=== PATIENT | female | born 1995 | race Caucasian/White ===

== ENCOUNTER → 2022-08-18 | Outpatient (CLI) | payer OTHER, SELFPAY ==
[2022-08-18 13:52] LABS: Absolute Lymphocyte Count 1.31 X10^3/uL (0.83-4.51); Absolute Neutrophil Count 5.6 X10^3/uL (2.0-7.7); Basophil# 0.03 X10^3/uL; Basophil% 0.4 % (0-1); Eosinophil# 0.11 X10^3/uL; Eosinophils% 1.5 % (0-5); Hematocrit 39.3 % (37-47); Hemoglobin 13.1 g/dL (12.0-15.0); Lymphocyte # 1.31 X10^3/ul (0.83-4.51); Lymphocyte % 17.5 % (19-41); Mean Corp Hgb Conc 33.3 g/dL (32-36); Mean Corpuscular Volume 86.9 fL (81-99); Mean Platelet Vol. 9.9 fl (6.2-12.0); Monocyte# 0.43 X10^3/uL; Monocyte% 5.7 % (0-10); NRBC Flagged by Analyzer 0 % (0-5); Neutrophil # 5.58 X10^3/uL (2.7-7.7); Neutrophil % 74.6 % (47-70); Platelet Count 319 K/mm3 (150-450); RBC Distribution Width CV 13.4 % (11.6-14.6); RBC Distribution Width SD 42.5 fl (35.1-43.9); Red Blood Count 4.52 M/mm3 (4.2-5.4); White Blood Count 7.5 K/mm3 (4.4-11.0)
[2022-08-18 14:02] LABS: Anion Gap 8 (5-15); BUN 18 mg/dL (7-18); BUN/Creat Ratio 24.8 RATIO (10-20); Calcium,Total 8.8 mg/dL (8.5-10.1); Chloride 101 mmol/L (98-107); Creatinine, Serum 0.73 mg/dL (0.55-1.02); EST Glomerular Filtration Rate 104 mL/min (>60); Est Glom Filt Rate - Afr Amer 125 mL/min (>60); Glucose 263 mg/dL (74-106); Potassium 3.8 mmol/L (3.5-5.1); Sodium Level 134 mmol/L (136-145)
[2022-08-18 14:09] LABS: Hemoglobin A1c 6.2 % (3.8-5.6)
[2022-08-18 15:49] LABS: HIV - WCH Non-Reactive (Nonreactive); Hepatitis B Surface Antigen Non-Reactive (Nonreactive); Hepatitis C Antibody Non-Reactive (Nonreactive); Rubella IgG Reactive (Nonreactive); Syphilis Antibodies Non-reactive
[2022-08-20 11:34] LABS: V-Zoster IgG (Immunity) 2920 index (Immune >165)
[2022-08-20 22:06] LABS: Chlamydia By Nucleic Acid AMP Negative (Negative)
[2022-08-20 22:14] LABS: Gonococcus By Nucleic Acid AMP Negative (Negative)
== END | disposition home or self-care (01) ==
LOC: WOBLAB 12:12
PROVIDERS: Visit Provider Obstetrics & Gynecology
DX: Z34.81 Encounter for supervision of other normal pregnancy, first trimester (principal); Z11.3 Encounter for screening for infections with a predominantly sexual mode of transmission
CPT/HCPCS: 36415; 80048; 83036; 85025; 86703; 86762; 86780; 86787; 86803; 87086; 87088; 87340; 87491; 87591

== ENCOUNTER → 2022-08-23 | Outpatient (CLI) | payer OTHER, SELFPAY ==
--- NOTE | 2022-08-23 16:02 | EKG12_ITS ---
Test Reason : PREGNATE Blood Pressure : / mmHG Vent. Rate : 072 BPM Atrial Rate : 072 BPM P-R Int : 146 ms QRS Dur : 080 ms QT Int : 368 ms P-R-T Axes : 059 083 023 degrees QTc Int : 402 ms Normal sinus rhythm Normal ECG Confirmed by ESTEBAN REINA, VIRGIL ([id number]), sound editor EKTA WATKINS ([id number]) on 08/24/2022 8:45:26 AM Referred By: Travis Mercedes Confirmed By:VIRGIL ORELLANA MD
== END | disposition home or self-care (01) ==
LOC: PSN 16:01
PROVIDERS: PCP Nurse Practitioner Family; Referring Provider Obstetrics & Gynecology; Visit Provider Obstetrics & Gynecology
DX: Z34.80 Encounter for supervision of other normal pregnancy, unspecified trimester (principal)
CPT/HCPCS: 93005

== ENCOUNTER → 2022-10-07 | Outpatient (CLI) | payer OTHER, SELFPAY ==
[2022-10-07 16:35] LABS: Protein, Urine (Random) 7.2 mg/dL (<11.9); Protein:Creat Ratio 101 mg/g CRE (0-200)
[2022-10-07 16:38] LABS: Absolute Lymphocyte Count 1.87 X10^3/uL (0.83-4.51); Absolute Neutrophil Count 7.3 X10^3/uL (2.0-7.7); Basophil# 0.04 X10^3/uL; Basophil% 0.4 % (0-1); Eosinophil# 0.11 X10^3/uL; Eosinophils% 1.1 % (0-5); Hematocrit 40.9 % (37-47); Hemoglobin 13.5 g/dL (12.0-15.0); Lymphocyte # 1.87 X10^3/ul (0.83-4.51); Lymphocyte % 19.1 % (19-41); Mean Corpuscular Hgb 28.5 pg (27.0-32.0); Mean Corpuscular Volume 86.5 fL (81-99); Mean Platelet Vol. 9.8 fl (6.2-12.0); Monocyte# 0.44 X10^3/uL; Monocyte% 4.5 % (0-10); NRBC Flagged by Analyzer 0 % (0-5); Neutrophil # 7.32 X10^3/uL (2.7-7.7); Neutrophil % 74.7 % (47-70); Platelet Count 334 K/mm3 (150-450); RBC Distribution Width CV 13.5 % (11.6-14.6); Red Blood Count 4.73 M/mm3 (4.2-5.4); White Blood Count 9.8 K/mm3 (4.4-11.0)
[2022-10-07 19:05] LABS: ALB/GLOB Ratio 0.9 RATIO (0.9-2.4); AST(SGOT) 13 U/L (15-37); Alanine Aminotransfer ALT/SGPT 16 U/L (13-56); Albumin, Serum 3.5 g/dL (3.2-5.0); Alkaline Phosphatase 62 U/L (45-117); Anion Gap 5 (5-15); BUN 10 mg/dL (7-18); BUN/Creat Ratio 14.5 RATIO (10-20); Calcium,Total 9.3 mg/dL (8.5-10.1); Chloride 106 mmol/L (98-107); Creatinine, Serum 0.69 mg/dL (0.55-1.02); EST Glomerular Filtration Rate 110 mL/min (>60); Est Glom Filt Rate - Afr Amer 133 mL/min (>60); Globulin 3.8 g/dL (2.2-4.2); Glucose 42 mg/dL (74-106); LDH 207 U/L (84-246); Potassium 3.6 mmol/L (3.5-5.1); Protein, Total 7.3 g/dL (6.4-8.2); Sodium Level 137 mmol/L (136-145)
== END | disposition home or self-care (01) ==
LOC: LABSPEC 15:41
PROVIDERS: PCP Nurse Practitioner Family; Visit Provider Obstetrics & Gynecology
DX: Z34.81 Encounter for supervision of other normal pregnancy, first trimester (principal)
CPT/HCPCS: 36415; 80053; 82570; 83615; 84156; 85025; 87086; 87088

== ENCOUNTER 2023-01-27 13:22 | Outpatient (CLI) | payer OTHER, SELFPAY ==
[2023-01-27 14:52] VITALS: BMI 35.5
[2023-01-27 15:01] VITALS: BP 130/75; PULSE 90; PULSE 92; TEMP 37.2; O2SAT 96
[2023-01-27 15:16] VITALS: BP 136/76; PULSE 95
[2023-01-27 15:16] LABS: Hematocrit 36.2 % (37-47); Hemoglobin 11.6 g/dL (12.0-15.0); Mean Corpuscular Hgb 28.4 pg (27.0-32.0); Mean Corpuscular Volume 88.5 fL (81-99); Mean Platelet Vol. 9.7 fl (6.2-12.0); Platelet Count 279 K/mm3 (150-450); RBC Distribution Width CV 13.5 % (11.6-14.6); RBC Distribution Width SD 43.8 fl (35.1-43.9); Red Blood Count 4.09 M/mm3 (4.2-5.4); White Blood Count 9.9 K/mm3 (4.4-11.0)
[2023-01-27 15:31] VITALS: BP 130/74; PULSE 89
[2023-01-27 15:35] LABS: ALB/GLOB Ratio 0.7 RATIO (0.9-2.4); AST(SGOT) 26 U/L (15-37); Alanine Aminotransfer ALT/SGPT 37 U/L (13-56); Albumin, Serum 2.6 g/dL (3.2-5.0); Alkaline Phosphatase 103 U/L (45-117); Anion Gap 5 (5-15); BUN 8 mg/dL (7-18); Chloride 108 mmol/L (98-107); Creatinine, Serum 0.61 mg/dL (0.55-1.02); EST Glomerular Filtration Rate 125 mL/min (>60); Est Glom Filt Rate - Afr Amer 152 mL/min (>60); Estimated Creatinine Clearance 106.39 ml/min; Globulin 3.9 g/dL (2.2-4.2); Glucose 89 mg/dL (74-106); LDH 224 U/L (84-246); Protein, Total 6.5 g/dL (6.4-8.2); Sodium Level 137 mmol/L (136-145); Uric Acid 5.3 mg/dL (2.6-6.0)
[2023-01-27 15:46] VITALS: BP 120/70; PULSE 89
[2023-01-27 15:52] LABS: Syphilis Antibodies Non-reactive
[2023-01-27 16:10] VITALS: BP 142/79; PULSE 88
[2023-01-27 16:25] VITALS: BP 128/78; PULSE 93
--- NOTE | 2023-01-28 06:35 | OB.TRI.NOTE ---
HPI - General General Date of Service: 01/27/23 HPI Narrative TERRI MATHEWS, is a 27 F who presents with elevated blood pressures in office PFSH PFS Home Medications labetalol 300 mg tablet 300 mg PO BID 01/27/23 [History Last Taken 01/27/23 11:00] Allergy/AdvReac Type Severity Reaction Status Date / Time kiwi Allergy Anaphylaxis Verified 01/27/23 14:54 Penicillins [PCN] Allergy Hives Verified 01/27/23 14:54 Sulfa (Sulfonamide Allergy Hives Verified 01/27/23 14:54 Antibiotics) [sulfa drugs] Social History Smoking Status: Never smoker NST FHR Rate Baby A Baseline: 150 Variability:: Moderate Accelerations:: 10 x 10 Decelerations:: None NST Reactive:: Yes Uterine Activity:: Irritable Assessment & Plan (1) : PLAN: Patient sent from office with elevated blood pressures known chronic hypertensive. Overall BPs in triage within normal limits. Patient remains asymptomatic. HELLP labs within normal limits. All reassuring. To continue taking blood pressures at home given parameters. Follow-up in office okay to discharge home
== END 2023-01-27 16:45 | disposition home or self-care (01) ==
LOC: WOBLAB 13:23 → WPOUT 14:36 → WP 14:36
PROVIDERS: PCP Nurse Practitioner Family; Referring Provider Obstetrics & Gynecology; Visit Provider Obstetrics & Gynecology
DX: O09.899 Supervision of other high risk pregnancies, unspecified trimester (principal); O99.891 Other specified diseases and conditions complicating pregnancy; R73.9 Hyperglycemia, unspecified; Z3A.00 Weeks of gestation of pregnancy not specified
CPT/HCPCS: 36415; 59025; 59050; 80053; 83615; 84550; 85027; 86780

== ENCOUNTER → 2023-03-03 | Outpatient (CLI) | payer OTHER, SELFPAY | END | disposition home or self-care (01) | LOC: LABSPEC 11:01 | PROVIDERS: PCP Nurse Practitioner Family; Visit Provider Obstetrics & Gynecology | DX: N39.0 Urinary tract infection, site not specified (principal) | CPT/HCPCS: 87086 ==

== ENCOUNTER → 2023-03-11 | Outpatient (CLI) | payer OTHER, SELFPAY ==
[2023-03-11 11:11] LABS: Hematocrit 36.3 % (37-47); Hemoglobin 11.7 g/dL (12.0-15.0); Mean Corp Hgb Conc 32.2 g/dL (32-36); Mean Corpuscular Hgb 27.4 pg (27.0-32.0); Platelet Count 258 K/mm3 (150-450); RBC Distribution Width CV 13.9 % (11.6-14.6); RBC Distribution Width SD 42.6 fl (35.1-43.9); Red Blood Count 4.27 M/mm3 (4.2-5.4); White Blood Count 10.4 K/mm3 (4.4-11.0)
== END | disposition home or self-care (01) ==
LOC: WOBLAB 10:58
PROVIDERS: PCP Nurse Practitioner Family; Visit Provider Obstetrics & Gynecology
DX: Z34.83 Encounter for supervision of other normal pregnancy, third trimester (principal); Z36.85 Encounter for antenatal screening for Streptococcus B
CPT/HCPCS: 36415; 85027; 87081; 87186

== ENCOUNTER 2023-03-25 04:50 | Inpatient (IN) | payer OTHER, SELFPAY ==
[2023-03-25] VITALS (23 sets, daily range): BP systolic 121–154; BP diastolic 60–91; PULSE 73–98; RESP 14–18; TEMP 36.1–36.7; O2SAT 95–99; BMI 37.5
[2023-03-25] MEDS: Lactated Ringers 1,000 ML 999 ML IV (05:30)
[2023-03-25 05:46] LABS: Absolute Lymphocyte Count 1.74 X10^3/uL (0.83-4.51); Absolute Neutrophil Count 5.7 X10^3/uL (2.0-7.7); Basophil# 0.03 X10^3/uL; Basophil% 0.4 % (0-1); Eosinophils% 1.2 % (0-5); Hematocrit 33.7 % (37-47); Hemoglobin 10.9 g/dL (12.0-15.0); Lymphocyte # 1.74 X10^3/ul (0.83-4.51); Lymphocyte % 21.1 % (19-41); Mean Corp Hgb Conc 32.3 g/dL (32-36); Mean Corpuscular Hgb 26.8 pg (27.0-32.0); Mean Corpuscular Volume 82.8 fL (81-99); Mean Platelet Vol. 10.6 fl (6.2-12.0); Monocyte# 0.65 X10^3/uL; Monocyte% 7.9 % (0-10); NRBC Flagged by Analyzer 0 % (0-5); Neutrophil # 5.68 X10^3/uL (2.7-7.7); Platelet Count 280 K/mm3 (150-450); RBC Distribution Width CV 13.8 % (11.6-14.6); RBC Distribution Width SD 41.3 fl (35.1-43.9); Red Blood Count 4.07 M/mm3 (4.2-5.4); White Blood Count 8.2 K/mm3 (4.4-11.0)
[2023-03-25 05:58] LABS: Bedside Glucose 124 mg/dL (74-106)
[2023-03-25] MEDS: Lactated Ringers 1,000 ML 150 ML IV (06:32)
[2023-03-25] MEDS: Sodium Citrate/Citric Acid 30 ML UDC PO (06:43)
[2023-03-25] MEDS: Acetaminophen 500 MG Tablet 1000 MG PO ×4 (06:43→23:48)
--- NOTE | 2023-03-25 06:55 | PCM.HP.BLA ---
History and Physical Date of Admission: 03/25/23 Chief complaint: Primary section breech History present illness: 27-year-old G1, P0 at 37 weeks and 3 days with NAVDEEP 04/12/2023 arrives for primary section for breech. Denies headache, visual changes, chest pain, shortness of breath, nausea vomit, right upper quadrant pain. Patient states good movement. is complicated by breech, GBS positive, chronic hypertension on labetalol, diabetes mellitus with insulin pump, BMI 37 Obstetric history: G1: Current Past medical history: Chronic hypertension, diabetes mellitus Medications: NovoLog insulin pump, labetalol 800 mg twice daily Past surgical history: None Allergies: Penicillin, sulfa Social history: Denies smoking, alcohol use, drug use Family history: Denies history DVT or PE Review of systems: Besides above pertinent positives a full review of systems was performed and found to be negative Physical exam: Vitals: Blood pressure 124/75 pulse 86 SPO2 96% on room air General: Normal-appearing no acute distress HEENT: Normocephalic/atraumatic no cervical lymphadenopathy Cardiac/respiratory: No use of accessory muscles, nonlabored breathing Abdomen: Soft, nontender, gravid Extremities: No peripheral edema normal peripheral pulses Psych: Normal affect normal demeanor nonpressured speech Labs: White blood cell count 8.2 hemoglobin 10.9 hematocrit 33.7% platelets 280. Glucose 124. Blood type O+ antibody negative Assessment and plan: 27-year-old G1, P0 at 37 weeks and 3 days arrives for primary section for breech. Educated patient on risk benefits alternatives include but not limited to visceral or vascular injury, prolonged hospitalization, blood loss need for transfusion, reoperation. Patient state understanding wish to proceed. All questions were answered and consent was signed. For gentamicin and clindamycin for antibiotic preoperatively. We will continue to follow blood sugars and treat appropriately. We will continue to follow monitor blood pressures and treat appropriately
[2023-03-25] MEDS: Clindamycin 900 MG/50 ML BAG 75 MG IV ×3 (07:27→23:49)
[2023-03-25 08:12] LABS: Syphilis Antibodies Non-reactive
--- NOTE | 2023-03-25 08:14 | OP.PCM_ITS ---
Details Operative Information Date of Procedure: 03/25/23 Pre-Operative Diagnosis: Term, breech, chronic hypertension, diabetes mellitus Post-Operative Diagnosis: Term, breech, chronic hypertension, diabetes mellitus marketing support coordinator #1: Ye Leon Findings Description of Procedure: Procedure: Primary low transverse section Via Pfannenstiel incision Surgeon: Travis Mercedes MD Anesthesia: Spinal EBL: 800 cc Urine output: 50 cc IV fluids: 1000 cc Complications: None Specimen: None Findings: Female infant in breech presentation, Apgars 8/9. Normal uterus, tubes, and ovaries. Consent: Patient with breech presentation elects for primary section Via Pfannenstiel incision. Patient understands risk of the procedure include but are not limited to visceral or vascular injury, prolonged hospitalization, blood loss need for transfusion, reoperation. Patient state understanding wish to proceed. All questions were answered and consent was signed. Procedure: Patient report back to the OR where spinal anesthesia was found to be adequate. Gentamicin and clindamycin were given for infection prophylaxis. Patient was prepared and draped in a supine position with leftward tilt. A Pfannenstiel incision was made at the skin with a scalpel. The incision was carried down to the fascia with a scalpel. The fascia was excised and extended laterally. Inferior aspect of the fascia was grasped with a clamp and the underlying rectus and pyramidalis muscle were dissected off sharply. In a similar fashion the superior aspect of the fascia was grasped and the underlying rectus muscle was dissected off sharply. Rectus muscle was dissected at the midline down to the level of the pubic symphysis. Preperitoneal fatty tissue was noted peritoneum was entered bluntly. Peritoneum was extended superiorly and inferiorly with good visualization of bladder. Bladder blade was inserted and vesicouterine peritoneum was identified. Low transverse hysterotomy was made. Hand was placed into the incision and baby was delivered in standard breech fashion. Cord was clamped and cut. Baby handed off to nursing. Placenta was delivered via cord traction and fundal massage. IV oxytocin was initiated in order to facilitate uterine contractions. Uterus was exteriorized and wiped out with dry laparotomy sponge in order to remove remaining placental membranes. Uterus was closed in continuous running fashion. [id number] sutures at the left corner and the midline of the hysterotomy were used for hemostasis, small 2 cm hematoma noted on left side of the hysterotomy and watched for prolonged period of time with good hemostasis and nonexpanding. Uterus was placed back in the abdominal cavity and the incision was reinspected, good hemostasis was noted and no changes to hematoma noted. Fascia was closed in continuous running fashion with PDS suture. Subcutaneous irrigation was performed and good hemostasis was noted. Skin was closed in a subcuticular fashion, good hemostasis was noted. All counts were correct x2. Patient tolerated the procedure well and was brought to recovery in stable condition.
[2023-03-25] MEDS: Oxytocin 15 Units/NS 250ml 15 UNITS/250 ML IV.SOLN 83 UNITS IV (08:35)
[2023-03-25] MEDS: Ketorolac 30 MG/ML Syringe IV ×3 (09:21→21:54)
[2023-03-25] MEDS: Nalbuphine 10 MG/ML Ampul 5 MG IV ×2 (10:50→10:56)
[2023-03-25] MEDS: Lactated Ringers 1,000 ML 100 ML IV (10:56)
--- NOTE | 2023-03-25 11:45 | NURSING ---
0900 blood sugar in recovery 117 from pts own machine
[2023-03-25] MEDS: Labetalol 200 MG Tablet 800 MG PO (15:35)
[2023-03-25] MEDS: Ondansetron 4 MG/2 ML Vial IV (16:27)
--- NOTE | 2023-03-25 17:03 | NURSING ---
pts 2 hour post prandial blood sugar was 165 per pt monitor- pt stated that her pump will adjust according to the reading and currently it is 140
[2023-03-25] MEDS: Enoxaparin 40 MG/0.4 ML Syringe SC (21:54)
[2023-03-26] MEDS: Ketorolac 30 MG/ML Syringe IV (03:53)
[2023-03-26 03:58] VITALS: BP 155/91; PULSE 93; RESP 17; TEMP 36.3; O2SAT 98
[2023-03-26 05:56] VITALS: PULSE 89; RESP 16; O2SAT 98
[2023-03-26] MEDS: Acetaminophen 500 MG Tablet 1000 MG PO ×2 (05:57→13:38)
[2023-03-26] MEDS: Labetalol 200 MG Tablet 800 MG PO (05:57)
--- NOTE | 2023-03-26 05:57 | PCM.PN.OB ---
Subjective Subjective Pain controlled. Lochia minimal. Up and moving around. Breast-feeding. Objective Data Objective Data Vital Signs: Vital Signs Temp Pulse Resp BP Pulse Ox O2 Del Method 97.4 F L 93 17 155/91 H 98 Room Air 03/26/23 03:58 03/26/23 03:58 03/26/23 03:58 03/26/23 03:58 03/26/23 03:58 03/26/23 03:58 Oxygen Delivery Method Room Air Weight: 90.265 kg Body Mass Index (BMI) 37.5 Intake & Output: Intake and Output for Last 24 Hours 03/24/23 03/25/23 03/26/23 23:59 23:59 23:59 Intake Total 3601 / 3601 50 / 50 Output Total 1700 / 1700 Balance 1901 / 1901 50 / 50 Lab / Micro Data Attestation: I reviewed the patient's lab results. Result Diagrams: 03/25/23 05:30 Labs: Laboratory Results - last 24 hr 03/25/23 05:26: POC Glucose 124 H 03/25/23 05:30: Blood Type O POSITIVE, Antibody Screen NEGATIVE 03/25/23 05:30: Syphilis Total Ab Non-reactive Physical Exam Const alert, oriented x3 and no apparent distress HEENT normocephalic Head and Scalp: atraumatic Neck full ROM Resp normal respiratory effort Cardio regular rate GI normal to inspection, nondistended, normoactive bowel sounds GI Narrative: Uterus 2 cm below umbilicus, dressing clean and dry Back/Spine normal ROM Extremity normal to inspection Extremity Narrative: Minimal pedal edema Neuro no focal motor deficits and no sensory deficits noted Psych mental status grossly normal and affect normal Assessment & Plan (1) Delivery by section: PLAN: Postop day 1 status post section for breech. Complicated by chronic hypertension on labetalol 800 mg twice daily. Blood pressures well controlled yesterday, slightly elevated overnight. We will monitor this morning for possible need for increased dosing or additional medication. Diabetes mellitus: Blood sugar this morning was not fasting, 124. Baby doing well. Breast-feeding. Would like discharge home today. Will monitor blood pressures this morning and if stable, consider discharge this afternoon. (2) Acute postoperative pain: (3) Chronic hypertension: (4) Diabetes mellitus:
--- NOTE | 2023-03-26 06:01 | DCINST_ITS ---
Discharge Instructions Diet Discharge Diet: No restrictions Activity Discharge Activity: Return to Normal Activity and May Shower May resume sexual activity in: 4-6 weeks Weight Bearing Status: Weight bearing as tolerated Lifting Restrictions: No greater than 25 pounds Dressing / Incision Call your doctor if your incision/area has: Continuous Slow Oozing, Increased Redness and Swelling at the incision site Call your doctor if you observe: Fever of 101 or Higher, Change in Color, Inability to urinate, Using more than 1 pad per hour, Shortness of breath, Dizziness, Swelling in the ankles, Chest pain and Calf discomfort Remove Dressing in: 1 week Cleanse incision/area with: Soap & Water and Keep Dressing Clean & Dry Follow Up Care Please Follow Up With: Travis Mercedes MD When: 1 week BP check with RN, 2 week post op, 6-week visit Test Results: Test results from this visit will be discussed in further detail at your follow- up appointment, if applicable. Discharge Plan Admission Admit Date/Time: 03/25/23 04:50 Primary Reason for Your Visit: section Attending Provider: Travis Mercedes Primary Care Provider: Jr Quach NP Instructions Additional Instructions / Restrictions: Regular diet. Okay to shower. No tub baths for 2 weeks. No lifting over 25 pounds for 2 to 3 weeks. No intercourse for 6 to 8 weeks. Call if fevers, chills, chest pain, shortness of breath. Follow-up 1 week blood pressure check, 4 to 6 weeks Discharge Orders/Prescriptions Prescriptions: New oxycodone 5 mg capsule 5 mg PO Q6H PRN (Reason: pain (scale score 7-10)) 4 Days Qty: 16 0RF No Action labetalol [Trandate] 300 mg Tablet 800 mg PO BID Referrals / Follow Up: Jr Quach NP, [employer] [Primary Care Provider] - Disposition Disposition (needs filled in before D/C Order can be placed): Home, Self Care
[2023-03-26 06:05] LABS: Hematocrit 29.3 % (37-47); Hemoglobin 9.4 g/dL (12.0-15.0); Mean Corp Hgb Conc 32.1 g/dL (32-36); Mean Corpuscular Hgb 26.9 pg (27.0-32.0); Mean Platelet Vol. 9.6 fl (6.2-12.0); Platelet Count 236 K/mm3 (150-450); RBC Distribution Width CV 14.1 % (11.6-14.6); Red Blood Count 3.49 M/mm3 (4.2-5.4); White Blood Count 10.2 K/mm3 (4.4-11.0)
[2023-03-26 08:00] VITALS: BP 120/70; PULSE 85; RESP 16; TEMP 36.2; O2SAT 98
[2023-03-26] MEDS: Ondansetron 4 MG/2 ML Vial IV (08:02)
[2023-03-26] MEDS: 0.9% Saline Lock 10 ML Syringe IV ×2 (08:03→08:34)
[2023-03-26] MEDS: Clindamycin 900 MG/50 ML BAG 75 MG IV (08:03)
[2023-03-26] MEDS: Enoxaparin 40 MG/0.4 ML Syringe SC (11:34)
[2023-03-26] MEDS: Ibuprofen 600 MG Tablet PO (11:35)
[2023-03-26] MEDS: Senna/Docusate Sodium 1 Tablet PO (11:35)
[2023-03-26 11:42] VITALS: BP 129/76; PULSE 81; RESP 18; TEMP 36.4; O2SAT 99
--- NOTE | 2023-03-26 13:33 | NURSING ---
0730- 2 hour post prandial bs 72 1300-2 hour post prandial bs 135
== END 2023-03-26 14:40 | disposition home or self-care (01) | DRG 786 ==
PROVIDERS: Student in an Organized Health Care Education/Training Program; Admitting Provider Obstetrics & Gynecology; PCP Nurse Practitioner Family; Visit Provider Obstetrics & Gynecology
PROC: 10D00Z1 Extraction of Products of Conception, Low, Open Approach (ICD-10-PCS; CPT 59514; principal; 2023-03-25 06:55)
DX: O32.1XX0 Maternal care for breech presentation, not applicable or unspecified (principal); O24.12 Pre-existing type 2 diabetes mellitus, in childbirth; O10.02 Pre-existing essential hypertension complicating childbirth; O98.82 Other maternal infectious and parasitic diseases complicating childbirth; Z3A.37 37 weeks gestation of pregnancy; Z96.41 Presence of insulin pump (external) (internal); Z37.0 Single live birth; B95.1 Streptococcus, group B, as the cause of diseases classified elsewhere
CPT/HCPCS: 59025; 59050; 82962; 85025; 85027; 86780; 86850; 86900; 86901; 99221; J7120; A4216; G0378; J2405